=== PATIENT | female | born 1990 | race Caucasian/White ===

== ENCOUNTER 2021-10-24 20:55 | Emergency (ER) | payer OTHER ==
[~2021-10-24] VITALS: Ht 154.9 cm; Wt 81.7 kg
[~2021-10-24 20:55] MED LIST: ALBUTEROL2.5 MG/0.5 INH; ALBUTEROL2.5 MG/31 INH; BENADRYL25 MG PO; CIPRO500 MG PO; CIPROFLOXACIN500 M1 PO; DELTASONE20 MG PO; DESYREL100 MG PO; DIPHENHIST50 MG PO; EPIPEN 2-P0.3 MG/0.3 IM; EPIPEN0.3 MG/0.1 IM; EPIPEN0.3 MG/0.3 IM; HYDROCODON-ACE1 EAC7 PO; HYDROCODONE-AP1 EAC6 PO; IBUPROFEN 800800 MG PO; PEPCID20 MG PO; PREDNISONE 10 M10 M1 PO; PREDNISONE 10 M10 MG PO; PREDNISONE50 MG PO; PROMETHAZINE12.5 M1 PO; PYRIDIUM200 MG PO; TRINATE TABLET1 TAB PO; VALTREX 500 MG500 MG PO; VENTOLIN HFA 1818 GM; VENTOLIN HFA 1818 GM INH; ZANTAC 150MG T150 M1 PO; ZOLOFT 50 MG TA50 M1 PO
[2021-10-24 21:24] LABS: HEMATOCRIT 47.3 % (37.0-47.0); HEMOGLOBIN 15.9 gm/dL (12.0-15.0); MCH 30.3 pg (26.0-34.0); MCHC 33.5 g/dL (28.0-37.0); MCV 90.5 fL (80.0-100.0); MPV 8.1 fl. (7.2-11.1); NUCLEATED RBCS 0 /100WBC; PLATELET COUNT* 284 thou/uL (150-400); RBC 5.23 mil/uL (4.20-5.00); WBC 14.9 thou/uL (4.0-11.0)
[2021-10-24 21:52] LABS: CALCIUM 8.6 mg/dL (8.5-10.1); CREATININE 0.8 mg/dL (0.6-1.3); POTASSIUM 3.4 mmol/L (3.5-5.1)
[2021-10-24 21:57] LABS: ALBUMIN 4.3 g/dL (3.4-5.0); TOTAL BILIRUBIN 0.4 mg/dL (<0.1-1.0); TOTAL PROTEIN 7.8 g/dL (6.4-8.2)
[2021-10-24 21:58] LABS: ABSOLUTE LYMPHOCYTES 1.3 thou/uL (0.8-5.3); ABSOLUTE MONOCYTES 0.6 thou/uL (0.0-1.2); PLATELET ESTIMATE ADEQUATE
[2021-10-24 22:37] LABS: URINE BLOOD NEGATIVE (Negative); URINE CLARITY CLEAR; URINE COLOR YELLOW; URINE GLUCOSE-RANDOM NEGATIVE (Negative); URINE KETONES 1+ (Negative); URINE LEUKOCYTES NEGATIVE (Negative); URINE NITRITE NEGATIVE (Negative); URINE PROTEIN 1+ (Negative); URINE SPECIFIC GRAVITY >= 1.030 (1.005-1.030); URINE UROBILINOGEN 0.2 E.U./dl (0.2-1.0)
[2021-10-24 22:38] LABS: URINE BILIRUBIN 1+ (Negative)
[2021-10-24 22:41] LABS: ICTOTEST (BILI CONFIRMATORY) Negative (Negative)
[2021-10-25] MEDS ORDERED: ZOFRAN ODT4 MG PO (00:06)
[2021-10-25 00:35] VITALS: BP 107/62
--- NOTE | 2021-10-25 09:30 | EKG ---
[place] [address] ELECTROCARDIOGRAM REPORT Name: FREEDOM TORRES Room: [facility]#: [id number] Admission: 10/24/21 Attend Phys: Discharge: 10/25/21 Date of : 89 Date of Service: 10/24/212125 Report #: [id number] THIS REPORT FOR: //name// [facility] ED Test Date: 2021-10-24 Test Time: 21:26:03 Pat Name: FREEDOM TORRES Department: Room: Gender: Commission Associate: : 1990 Requested By: Saturnino Corley Order Number: [id number] MD: Luis Lancaster Measurements Intervals [place] Rate: 115 P: 57 W[place]: 124 QRS: 11 QRSD: 74 T: 31 QT: 320 QTc: 443 Interpretive Statements Sinus tachycardia Low voltage, precordial leads Compared to ECG 12/27/2014 18:33:19 Low QRS voltage now present Sinus rate has increased Electronically Signed On 10-25-2021 9:29:54 [employer] by Luis Lancaster [email or web address] <ELECTRONICALLY SIGNED> By: Luis Lancaster MD, FAC 10/25/21 0929 25 25 Luis Lancaster MD, [facility] /EPI
== END 2021-10-25 00:35 | disposition home or self-care (01) ==
LOC: M.ERS 20:55
PROVIDERS: Physician Assistant
DX: R00.0 Tachycardia, unspecified (principal); Z20.822 Contact with and (suspected) exposure to COVID-19; F31.9 Bipolar disorder, unspecified; J45.909 Unspecified asthma, uncomplicated; F17.210 Nicotine dependence, cigarettes, uncomplicated; Z91.09 Other allergy status, other than to drugs and biological substances; Z88.2 Allergy status to sulfonamides; Z88.6 Allergy status to analgesic agent; Z91.018 Allergy to other foods

== ENCOUNTER 2021-10-28 09:27 | Emergency (ER) | payer OTHER, MEDICAID ==
[~2021-10-28] VITALS: Ht 154.9 cm; Wt 81.7 kg
[~2021-10-28 09:27] MED LIST changes: +ZOFRAN ODT4 MG PO
[2021-10-28] MEDS ORDERED: ZOFRAN ODT4 MG DISSOLVE (09:59)
[2021-10-28] MEDS ORDERED: NAPROSYN500 MG PO (09:59)
[2021-10-28 10:04] VITALS: BP 128/83
== END 2021-10-28 10:04 | disposition home or self-care (01) ==
LOC: M.ERS 09:27
DX: B34.9 Viral infection, unspecified (principal); J45.909 Unspecified asthma, uncomplicated; K58.9 Irritable bowel syndrome, unspecified; F17.210 Nicotine dependence, cigarettes, uncomplicated; Z88.2 Allergy status to sulfonamides; Z91.018 Allergy to other foods